=== PATIENT | male | born 1970 | race Caucasian/White ===

== ENCOUNTER 2022-06-11 09:37 | Emergency (ER) | payer OTHER, SELFPAY ==
[2022-06-11 09:57] VITALS: BP 125/82; PULSE 88; RESP 16; TEMP 36.8; O2SAT 98
--- NOTE | 2022-06-11 10:05 | ED.SKABFB ---
HPI - Skin/Abscess/Foreign Bdy General Chief complaint: Skin/Abscess/Foreign Body Stated complaint: infected wound on neck Time Seen by Provider: 06/11/22 10:00 Source: patient Mode of arrival: ambulatory Limitations: no limitations History of Present Illness HPI narrative: Vitor is a 52-year-old male patient presenting to clinic today with complaints of a possible infected wound to the left anterior neck. He reports that yesterday and developed tenderness and swelling with some erythema. He reports he is supposed to get his sutures out tomorrow. He denies any drainage coming from the wound. Related Data Allergies Allergy/AdvReac Type Severity Reaction Status Date / Time Mushroom AdvReac Unknown VOMITING Uncoded 06/11/22 10:11 Review of Systems Review of Systems: Pertinent positives per HPI. Patient denies any fever, chills, rash, headache, visual changes, dizziness, cough, runny nose, sore throat, shortness of breath, chest pain, palpitations, nausea, vomiting, diarrhea, constipation, abdominal pain, or any urinary issues. PMFSH Comments At the time of my signature, I reviewed and agree with the nursing past medical, surgical, social, and family history. There is no relevant family history pertinent to the patient complaint. Exam Narrative: General: Well-developed, well nourished, in no apparent distress Head: Normocephalic, atraumatic. Cardio: Regular rate and rhythm, s1 and s2 normal, no murmur appreciated. Resp: Clear to auscultation bilaterally, no rhonchi, rales, wheezing or rubs. Integumentary: [place], warm, and dry, well-healing wound to the left anterior neck with mild erythema and mild induration, tender to palpation Course Course Emergency Course: Portions of this record may have been created with voice recognition software. Level of Care: Express Care Visit Vital Signs Vital signs: Vital Signs Temperature 36.8 C 06/11/22 09:57 Pulse Rate 88 06/11/22 09:57 Respiratory Rate 16 06/11/22 09:57 Blood Pressure 125/82 06/11/22 09:57 Pulse Oximetry 98 06/11/22 09:57 Temperature 36.8 C 06/11/22 09:57 Pulse Rate 88 06/11/22 09:57 Respiratory Rate 16 06/11/22 09:57 Blood Pressure 125/82 06/11/22 09:57 Pulse Oximetry 98 06/11/22 09:57 Vital signs reviewed MDM - Skin/Abscess/Foreign Bdy MDM Narrative Medical decision making narrative: At the time of visit patient is resting comfortably on the exam table. I suspect the patient may have a superficial bacterial infection. Prescription for doxycycline was sent to cover infection and will have him follow-up with his PCP tomorrow. Supportive measures were discussed with the patient he voiced understanding discharge instructions and agrees to treatment plan Differential Diagnosis Differential diagnosis: Likely abscess of skin or subcutaneous tissue and other (Wound infection) Discharge Plan Discharge Clinical Impression: Infected wound Patient Disposition: Home, Self-Care Condition: Stable Instructions: Antibiotic Form, Surgical Site Infections (ED) Additional Instructions: Take doxycycline as prescribed May take Tylenol/Motrin as needed for any pain or fever Follow-up with your doctor tomorrow as scheduled Prescriptions: New doxycycline monohydrate 100 mg capsule 100 mg PO BID 7 Days Qty: 14 0RF Follow-up/Referrals: UNKNOWN,DOCTOR [Primary Care Provider] - Time of Disposition: 10:06 Quality NIHSS Nursing Documentation ED NIHSS nursing documentation: reviewed/agree
== END 2022-06-11 10:11 | disposition home or self-care (01) ==
PROVIDERS: Emergency Provider Nurse Practitioner Family
DX: S11.91XD Laceration without foreign body of unspecified part of neck, subsequent encounter (principal); L08.9 Local infection of the skin and subcutaneous tissue, unspecified; X58.XXXD Exposure to other specified factors, subsequent encounter
CPT/HCPCS: 99203; G0463

== ENCOUNTER 2022-07-03 18:32 | Emergency (ER) | payer OTHER, SELFPAY ==
--- NOTE | 2022-07-03 18:34 | ED.URI ---
HPI - URI/Sore Throat General Chief Complaint: Upper Respiratory Infection Stated Complaint: sore throat Time Seen by Provider: 07/03/22 18:54 Source: patient and RN notes reviewed Mode of arrival: ambulatory Limitations: no limitations History of Present Illness HPI Narrative: 52-year-old male presents concern for sore throat that started night. Reports Exposure to strep. Denies other symptoms. Reports taking antihistamine without relief MD elicited complaint: sore throat Related Data Home Medications Medication Instructions Recorded Confirmed atorvastatin 80 mg tablet 80 mg PO DAILY 07/03/22 07/03/22 citalopram 20 mg tablet 20 mg PO DAILY 07/03/22 07/03/22 fexofenadine 180 mg tablet 180 mg PO DAILY 07/03/22 07/03/22 Allergies Allergy/AdvReac Type Severity Reaction Status Date / Time Mushroom AdvReac Unknown VOMITING Uncoded 07/03/22 18:43 Review of Systems Review of Systems: CONSTITUTIONAL: Denies malaise, chills, sweats, or fever. EYES: Denies visual changes, redness, or discharge. ENT: Denies rhinorrhea, congestion, sinus pain, otalgia. Reports sore throat. CARDIOVASCULAR: Denies chest pain, palpitations, or edema. RESPIRATORY: Denies cough. Denies dyspnea. GASTROINTESTINAL: Denies abdominal pain, nausea, vomiting, diarrhea SKIN: Denies rash or itching. MUSCULOSKELETAL: Denies myalgia. NEUROLOGIC: Denies headache. All systems reviewed & are unremarkable except as noted in HPI and below PMFSH Comments At time of signature, agree with nursing past medical, surgical, social and family history. There is no relevant family history pertinent to the presenting complaint Exam Narrative: GENERAL: Well-appearing, well-nourished, and in no acute distress. HEAD: Normocephalic EYES: PERRLA, conjunctivae clear ENT: Nares clear. Mucous membranes moist. TM pearly gomez with discharge light reflex bilaterally; no tragal tenderness. Oropharynx erythematous without lesions. Tonsils not enlarged and without exudate, no drooling, no hoarseness, no trismus, uvula midline. NECK: Supple. No lymphadenopathy CHEST: Clear to auscultation, breath sounds equal. No wheezing, rhonchi, rales, or stridor. No respiratory distress, speaks in full sentences. HEART: Regular rate and rhythm. No murmur heard. SKIN: Warm, dry, no rash. NEURO: Alert and oriented x3. PSYCH: Normal mood and affect Course Course Emergency Course: Patient is aware of diagnosis, understands and agrees to treatment plan. Anticipatory guidance given. Patient agrees to follow-up as directed and is aware of reasons to seek care at the emergency department. Portions of this record may have been created with voice recognition software Level of Care: Express Care Visit Vital Signs Vital signs: Reviewed. MDM - URI/Sore Throat MDM Narrative Medical decision making narrative: Differential diagnosis considered: Ma virus, strep pharyngitis, allergic rhinitis, upper respiratory tract infection, sinusitis, rhinosinusitis, nasopharyngitis. viral pharyngitis, otitis media, otitis externa, pneumonia, bronchitis, viral cough syndrome, viral syndrome, and influenza. Exam findings show no acute concerns or changes; patient is non-toxic appearing and is in no distress. Patient is appropriate for outpatient treatment and follow-up. Lab Data Attestation: I reviewed the patient's lab results. Critical Care Time Critical Care Time Critical Care Time: No Discharge Plan Discharge Clinical Impression: Pharyngitis Patient Disposition: Home, Self-Care Condition: Stable Instructions: Antibiotic Form, Pharyngitis (ED) Additional Instructions: A throat culture will be sent to the laboratory for testing. You can call this clinic on afternoon [phone] to find out the results of your culture. If the test is negative you can stop your antibiotic, your symptoms are than likely viral. -Alternate Tylenol and Motrin per package directions for fever or pain. -
[2022-07-03 18:45] VITALS: BP 133/92; PULSE 79; RESP 16; TEMP 36.6; O2SAT 98
== END 2022-07-03 19:04 | disposition home or self-care (01) ==
PROVIDERS: Emergency Provider Nurse Practitioner
DX: J02.9 Acute pharyngitis, unspecified (principal); Z20.822 Contact with and (suspected) exposure to COVID-19; E78.00 Pure hypercholesterolemia, unspecified; F41.9 Anxiety disorder, unspecified
CPT/HCPCS: 87081; 87426; 87804; 99213; C9803; G0463

== ENCOUNTER → 2022-08-29 11:22 | Outpatient (CLI) | payer OTHER, SELFPAY ==
--- NOTE | ~2022-08-29 | US_ITS ---
US scrotum doppler INDICATION: Epididymal cysts. Right-sided tenderness. TECHNIQUE: Testicular sonogram utilizing grayscale and color Doppler FINDINGS: The testes are normal in size and appearance. No focal lesions are seen. The right testes measures 5.7 x 2.5 x 3.1 centimeters, and the left testis measures 5 x 2.4 x 2.9 cm. There is normal vascular flow to both testes. The right and left epididymides appear normal. There is no varicocele or hydrocele. IMPRESSION: 1. NORMAL TESTICULAR ULTRASOUND. Reviewed, dictated and finalized at location A. H GRADER
== END ==
PROVIDERS: PCP Nurse Practitioner Adult Health; Visit Provider Nurse Practitioner Adult Health
DX: N50.3 Cyst of epididymis (principal)
CPT/HCPCS: 76870; 93976

== ENCOUNTER 2023-03-30 17:25 | Emergency (ER) | payer OTHER, SELFPAY ==
[2023-03-30 17:49] VITALS: BP 120/85; PULSE 93; RESP 16; TEMP 37.4; O2SAT 95
--- NOTE | 2023-03-30 18:07 | ED.GENADULT ---
HPI - General Adult General Chief complaint: Upper Respiratory Infection Stated complaint: BODY ACHES/FEVER/COUGH/SINUS Time Seen by Provider: 03/30/23 18:07 Source: patient, RN notes reviewed and old records reviewed Mode of arrival: ambulatory Limitations: no limitations History of Present Illness HPI narrative: 53 year old male presents to express care with complaints of feeling tired and achy, runny nose,cough and sore throat for the past 2 days. patient reports that mid day Sunday he started feeling really fatigued and by he started with other symptoms. Patient reports that he had 99.4F temperature today. Patient reports that he has taken Ana, Flonase, Advil and Benadryl for his symptoms. Patient denies any shortness of breath MD complaint: body aches, sore throat cough, tired Onset (ago): day(s) (2) Severity: moderate Treatments prior to arrival: NSAID and other ( Benadryl, Ana, Flonase) Related Data Home Medications Medication Instructions Recorded Confirmed atorvastatin 80 mg tablet 80 mg PO DAILY 07/03/22 03/30/23 citalopram 20 mg tablet 20 mg PO DAILY 07/03/22 03/30/23 fexofenadine 180 mg tablet 180 mg PO DAILY 07/03/22 03/30/23 Allergies Allergy/AdvReac Type Severity Reaction Status Date / Time Mushroom AdvReac Unknown VOMITING Uncoded 03/30/23 17:38 Review of Systems Review of Systems: CONSTITUTIONAL: Reports malaise, chills, sweats, or fever. EYES: Denies visual changes, redness, or discharge. ENT: Reports rhinorrhea, congestion, sinus pain,no otalgia positive sore throat. CARDIOVASCULAR: Denies chest pain, palpitations, or edema. RESPIRATORY: Reports cough.? Denies dyspnea. GASTROINTESTINAL: Denies abdominal pain, nausea, vomiting, diarrhea SKIN: Denies rash or itching. MUSCULOSKELETAL: Reports myalgia. NEUROLOGIC: Denies headache. All systems reviewed & are unremarkable except as noted in HPI and below PMFSH Past Medical History Medical History (Updated 04/01/23 @ 22:58 by Teressa Banuelos NP) Anxiety Pectus excavatum Surgical History Surgical History (Updated 04/01/23 @ 22:58 by Teressa Banuelos NP) History of testicular surgery Social History Social History (Updated 04/01/23 @ 22:59 by Teressa Banuelos NP) Smoking status: Never smoker Alcohol intake: current Alcohol use details: social Substance use type: does not use Living arrangements: with family Gender identity (if verbalized by the patient): Male Comments At time of signature, agree with nursing past medical, surgical, social and family history. There is no relevant family history pertinent to the presenting complaint Exam Narrative: GENERAL: Well-appearing, well-nourished, and in no acute distress. HEAD: Normocephalic EYES: PERRLA, conjunctivae clear ENT: Nares clear, turbinates edematous and erythematous, clear discharge. Mucous membranes moist. TM pearly gomez with dull light reflex bilaterally; no tragal tenderness. Oropharynx erythematous without lesions. Tonsils not enlarged and without exudate, no drooling, no hoarseness, no trismus, uvula midline.post nasal drainage NECK: Supple. No lymphadenopathy CHEST: Clear to auscultation, breath sounds equal. No wheezing, rhonchi, rales, or stridor. No respiratory distress, speaks in full sentences.SAO2 95% on room air, cough HEART: Regular rate and rhythm. No murmur heard. SKIN: Warm, dry, no rash. NEURO: Alert and oriented x3. PSYCH: Normal mood and affect Course Course Emergency Course: Patient is aware of diagnosis, understands and agrees to treatment plan.? Anticipatory guidance given.? Patient agrees to follow-up as directed and is aware of reasons to seek care at the emergency department. Portions of this record may have been created with voice recognition software Level of Care: Express Care Visit Vital Signs Vital signs: Vital Signs Temperature 37.4 C 03/30/23 17:49 Pulse Rat
== END 2023-03-30 18:26 | disposition home or self-care (01) ==
PROVIDERS: Emergency Provider Registered Nurse
DX: U07.1 COVID-19 (principal); F41.9 Anxiety disorder, unspecified
CPT/HCPCS: 87081; 87426; 87804; 87880; 99213; C9803; G0463

== ENCOUNTER 2023-09-18 08:03 | Emergency (ER) | payer OTHER, SELFPAY ==
--- NOTE | ~2023-09-18 | XR_ITS ---
EXAMINATION: XR chest 2V DATE: 09/18/2023 08:33 INDICATION: Cough and fever TECHNIQUE: PA and lateral views of the chest are obtained. COMPARISON: None available FINDINGS: The lungs are free of acute opacities. No pleural effusion or pneumothorax. The cardiomedia stinal silhouette is normal. There is mild thoracic spondylosis. Pectus excavatum is noted. IMPRESSION: 1. No acute cardiopulmonary abnormality. Reviewed, dictated and finalized at location L. TIC COUNSELLOR
--- NOTE | 2023-09-18 08:07 | ED.URI ---
HPI - URI/Sore Throat General Chief Complaint: Upper Respiratory Infection Stated Complaint: Fever/Congestion/Bodyaches Source: patient and RN notes reviewed Mode of arrival: ambulatory Limitations: no limitations History of Present Illness HPI Narrative: Patient is a 53-year-old male who presents to the [facility] with complaints of fever, congestion, and cough starting last night around 5:00 p.m.. He reports a frequent productive cough. Denies chest pain or shortness of breath. States that he has had nasal and chest congestion, generalized body aches, and sweats /chills. He is unsure of any known sick contacts. He denies any abdominal pain, nausea, vomiting, diarrhea. He is currently febrile; states that he has not taken any medication prior to arrival. His respirations are unlabored at this time and he does not present in acute distress. Related Data Home Medications Medication Instructions Recorded Confirmed atorvastatin 80 mg tablet 80 mg PO DAILY 07/03/22 09/18/23 fexofenadine 180 mg tablet 180 mg PO DAILY 07/03/22 09/18/23 citalopram 40 mg tablet 40 mg PO DAILY 09/18/23 09/18/23 Allergies Allergy/AdvReac Type Severity Reaction Status Date / Time Mushroom AdvReac Unknown VOMITING Uncoded 09/18/23 08:18 Review of Systems Review of Systems: CONSTITUTIONAL: Reports fever, chills, or sweats. EYES: Denies visual changes, redness, or discharge. ENT: Denies otalgia and sore throat. Reports nasal congestion. CARDIOVASCULAR: Denies chest pain, palpitations, or edema. RESPIRATORY: Reports cough but denies dyspnea. GASTROINTESTINAL: Denies abdominal pain, nausea, vomiting, or diarrhea. GENITOURINARY: Denies dysuria or hematuria. SKIN: Denies rash or itching. MUSCULOSKELETAL: Denies back pain, joint pain, but reports myalgia. NEUROLOGIC: Denies headache, numbness, or weakness. Pertinent positives per HPI. [facility] Past Medical History Medical History Anxiety Pectus excavatum Surgical History Surgical History History of testicular surgery Social History Social History Smoking status: Never smoker Alcohol intake: current Alcohol use details: social Substance use type: does not use Living arrangements: with family Gender identity (if verbalized by the patient): Male Comments At the time of my signature, I reviewed and agree with the nursing past medical, surgical, social, and family history. There is no relevant family history pertinent to the patient complaint. Exam Narrative: GENERAL: This is a well-nourished, well-developed patient, in no apparent distress. HEAD: normocephalic, atraumatic. EYES: Sclera clear/white. Vision is grossly intact. EARS: External ears normal, auditory canals clear and without drainage, TMs normal without perforation. Hearing grossly intact. NOSE: External nose normal, nares with redness, + rhinorrhea. THROAT: Mucous membranes moist, posterior pharynx erythema without exudate or ulceration. NECK: Neck supple, non-tender without lymphadenopathy, masses or thyromegaly. CARDIOVASCULAR: Regular rate and rhythm without murmurs, gallops, or rubs. RESPIRATORY: Clear to auscultation. Breath sounds equal bilaterally. No wheezes, rales, or rhonchi. GASTROINTESTINAL: Abdomen soft, non-tender, nondistended. Bowel sounds are active. No hepato-splenomegaly, or palpable masses. No guarding. SKIN: warm, intact with no suspicious lesions or rash, good texture and turgor. NEURO: awake, alert, and oriented to person, place and time. There were no obvious focal neurologic abnormalities. Course Course Level of Care: Express Care Visit Vital Signs Vital signs: Vital Signs Temperature 102.5 F H 09/18/23 08:20 Pulse Rate 111 H 09/18/23 08:20 Respiratory Rate 16 09/18/23 08:20 Blood Pressure 122/69 03
[2023-09-18 08:20] VITALS: BP 122/69; PULSE 111; RESP 16; TEMP 39.2; O2SAT 95
[2023-09-18] MEDS: IBUPROFEN 600 MG TABLET PO (08:24)
[2023-09-18] MEDS: ACETAMINOPHEN 500 MG TABLET 1000 MG PO (08:25)
[2023-09-18 09:00] VITALS: PULSE 105; TEMP 38.7
== END 2023-09-18 09:00 | disposition home or self-care (01) ==
PROVIDERS: Emergency Provider Nurse Practitioner
DX: J10.1 Influenza due to other identified influenza virus with other respiratory manifestations (principal); Z20.822 Contact with and (suspected) exposure to COVID-19; F41.9 Anxiety disorder, unspecified
CPT/HCPCS: 71046; 87426; 87804; 99213; A9270; G0463

== ENCOUNTER 2024-10-09 11:17 | Emergency (ER) | payer OTHER, SELFPAY ==
--- NOTE | 2024-10-09 11:23 | ED_ITS ---
HPI - URI/Sore Throat General Chief Complaint: Upper Respiratory Infection Stated Complaint: COUGH/CONGESTION/TIRED/BODY ACHES Time Seen by Provider: 10/09/24 11:21 Source: patient Mode of arrival: ambulatory Limitations: no limitations History of Present Illness HPI Narrative: Vitor is a 54-year-old male patient presenting to the clinic today with complaints of cough, congestion, fatigue, and body aches x2 days. He reports no known fever. Coughing up clear phlegm and blowing out clear nasal drainage. Denies any chest pain or shortness of breath. No history of asthma or COPD. Denies smoking history Related Data Home Medications ?Medication ?Instructions ?Recorded ?Confirmed ?Last Taken ?Type atorvastatin 80 mg tablet 80 mg PO DAILY 07/03/22 10/09/24 Unknown History fexofenadine 180 mg tablet 180 mg PO DAILY 07/03/22 10/09/24 Unknown History citalopram 40 mg tablet 40 mg PO DAILY 09/18/23 10/09/24 Unknown History Allergies Allergy/AdvReac Type Severity Reaction Status Date / Time Mushroom AdvReac Unknown VOMITING Uncoded 10/09/24 11:36 Review of Systems Review of Systems: Pertinent positives per HPI. Patient denies any fever, chills, rash, headache, visual changes, dizziness, shortness of breath, chest pain, palpitations, nausea, vomiting, diarrhea, constipation, abdominal pain, or any urinary issues. [facility] Past Medical History Medical History Anxiety Pectus excavatum Surgical History Surgical History History of testicular surgery Social History Social History Smoking status: Never smoker Alcohol intake: current Alcohol use details: social Substance use type: does not use Living arrangements: with family Gender identity (if verbalized by the patient): Male Comments At the time of my signature, I reviewed and agree with the nursing past medical, surgical, social, and family history. There is no relevant family history pertinent to the patient complaint. Exam Narrative: General: Well-developed, well nourished, in no apparent distress Head: Normocephalic, atraumatic Eyes: Pupils equally round and reactive to light bilaterally, EOM intact, sclera and conjunctive clear, no discharge, lids normal Ears: TMs intact and clear, ear canals clear, no drainage, grossly hearing normal. Nose: Nares patent, clear nasal discharge, no inflammation, no sinus tenderness. Mouth: Oral pharynx without lesions or masses, good dentition, MMM. Neck: Supple, trachea midline, no enlargement of anterior or posterior cervical nodes, no thyroid masses or goiter palpable. Cardio: Regular rate and rhythm, s1 and s2 normal, no murmur appreciated. Resp: Expiratory wheezing, no rhonchi, rales, or rubs Course Course Emergency Course: Portions of this record may have been created with voice recognition software. Level of Care: Express Care Visit Vital Signs Vital signs: Vital Signs Temperature 36.5 C 10/09/24 11:36 Pulse Rate 83 10/09/24 11:36 Respiratory Rate 16 10/09/24 11:36 Blood Pressure 123/86 10/09/24 11:36 Pulse Oximetry 99 10/09/24 11:36 Temperature 36.5 C 10/09/24 11:36 Pulse Rate 83 10/09/24 11:36 Respiratory Rate 16 10/09/24 11:36 Blood Pressure 123/86 10/09/24 11:36 Pulse Oximetry 99 10/09/24 11:36 Vital signs reviewed MDM - URI/Sore Throat MDM Narrative Medical decision making narrative: At the time of visit patient is resting comfortably on the exam table. Patient appears to be nontoxic. Labs: COVID and influenza testing was negative in the clinic today. Plan: I suspect patient has bronchitis. Prescription for prednisone and albuterol inhaler was sent to the pharmacy. Supportive measures were discussed with the patient and they voiced understanding discharge instructions and agrees to treatment plan. Return precautions reviewed Differential Diagnosis Differential diagnosis: Likely upper respiratory infection, otitis media, s inusitis, viral infection, bronchitis, influenza, pharyngitis and other (COVID) Lab Data Labs: Lab Results 10/09/24 Range/Units 11:54 POC Influenza A Ag Negative (Negative) POC Influenza B Ag Negative (Negative) POC SARS CoV-2 Ag Negative (Negative) Discharge Plan Discharge Clinical Impression: Bronchitis Patient Disposition: Home, Self-Care Condition: Stable Instructions: Antibiotic Form, Acute Bronchitis (ED) Additional Instructions: COVID and influenza testing was negative Take prescription medications only as prescribed-albuterol inhaler and prednisone Increase fluids and stay well hydrated Tylenol/motrin for pain/fever Flonase and OTC antihistamines as directed Vicks vapor rub to open sinuses Sinus rinses for congestion Cepacol spray, cough drops, throat lozenges, warm tea with honey/lemon, gargle salt water to soothe throat BRAT diet for diarrhea Clear liquids x 24 hours then advance as tolerated for nausea/vomiting Go to the ED if you develop a worsening in your condition- high fever not controlled by Tylenol or Motrin, dehydration, weakness, lethargy, shortness of breath, or chest pain. Follow up with your PCP in 3-5 days if symptoms persist. Patient Language: [place] Prescriptions: New albuterol sulfate 90 mcg/actuation HFA aerosol inhaler 2 puff inhalation Q4-6H PRN (Reason: shortness of breath or wheezing) 30 Days Qty: 8.5 0RF prednisone 50 mg tablet 50 mg PO DAILY 5 Days Qty: 5 0RF No Action atorvastatin 80 mg tablet 80 mg PO DAILY fexofenadine [Ana] 180 mg Tablet 180 mg PO DAILY citalopram 40 mg tablet 40 mg PO DAILY Follow-up/Referrals: Ashley,Maxwell [Other] Stand Alone Forms: Work/School Release IP Time of Disposition: 11:52 Quality NIHSS Nursing Documentation ED NIHSS nursing documentation: reviewed/agree
[2024-10-09 11:36] VITALS: BP 123/86; PULSE 83; RESP 16; TEMP 36.5; O2SAT 99
[2024-10-09 12:02] LABS: EDCOVIDSCREEN Negative (Negative); EDINFLUASCREEN Negative (Negative); EDINFLUBSCREEN Negative (Negative)
== END 2024-10-09 12:00 | disposition home or self-care (01) ==
PROVIDERS: Emergency Provider Nurse Practitioner Family
DX: J40 Bronchitis, not specified as acute or chronic (principal); Z20.822 Contact with and (suspected) exposure to COVID-19; F41.9 Anxiety disorder, unspecified
CPT/HCPCS: 87426; 87804; 99213; G0463